=== PATIENT | female | born 1960 | race Caucasian/White ===

== ENCOUNTER 2020-02-03 14:44 | Emergency (ER) | payer OTHER ==
[2020-02-03] MEDS ORDERED: FLUORESCEIN SODIUM 1 MG/WRAP ONE (15:40)
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
[2020-02-03] MEDS ORDERED: GENTAMICIN 0.3% OPTH DROP 5ML ONE (16:05)
[2020-02-03 16:08] VITALS: TEMP 97.4; O2SAT 100
[2020-02-03 16:09] VITALS: BP 179/96
== END 2020-02-03 16:02 | disposition home or self-care (01) ==
LOC: ER 14:44
DX: S05.02XA Injury of conjunctiva and corneal abrasion without foreign body, left eye, initial encounter (principal); S05.01XA Injury of conjunctiva and corneal abrasion without foreign body, right eye, initial encounter; I11.9 Hypertensive heart disease without heart failure; I10 Essential (primary) hypertension; F17.210 Nicotine dependence, cigarettes, uncomplicated; Z88.4 Allergy status to anesthetic agent
CPT/HCPCS: 99283

== ENCOUNTER 2020-05-18 10:51 | Emergency (ER) | payer OTHER ==
--- NOTE | 2020-05-18 11:15 | ER ---
Nurse's Notes [facility] Name: Mery Larson Age: 59 yrs Sex: Female : 1960 Arrival Date: 05/18/2020 Time: 10:52 Bed 15 Private MD: Diagnosis: Periapical abscess without sinus Presentation: 05/18 10:57 Chief complaint: Patient states: Abscess on bottom R tooth x 1 week. Denies fever. ca1 Coronavirus screen: Client denies travel out of the [place] in the last 14 days. At this time, the client does not indicate any symptoms associated with coronavirus-19. Ebola Screen: Patient negative for fever greater than or equal to 101.5 degrees Fahrenheit, and additional compatible Ebola Virus Disease symptoms Patient denies exposure to infectious person. Patient denies travel to an Ebola-affected area in the 21 days before illness onset. No symptoms or risks identified at this time. Initial Sepsis Screen: Does the patient meet any 2 criteria? No. Patient's initial sepsis screen is negative. Does the patient have a suspected source of infection? No. Patient's initial sepsis screen is negative. Risk Assessment: Do you want to hurt yourself or someone else? Patient reports no desire to harm self or others. Onset of symptoms was May 18, 2020. 10:57 Method Of Arrival: Wheelchair ca1 10:57 Acuity: SHIV 4 ca1 Historical: - Allergies: 11:01 Lidocaine; ca1 11:01 novacain; ca1 11:01 steroids; ca1 - PMHx: 11:01 Diabetes - NIDDM; Hypertension; Myocardial infarction; ca1 - PSHx: 11:01 brain aneurysm-craniotomy; Hysterectomy; Appendectomy; ca1 - Immunization history:: Adult Immunizations up to date, Flu vaccine is not up to date. - Social history:: Smoking status: Patient reports the use of cigarette tobacco products, smokes one-half pack cigarettes per day. Screenin:25 Abuse screen: Denies threats or abuse. Nutritional screening: No deficits noted. tw2 Tuberculosis screening: No symptoms or risk factors identified. Fall Risk None identified. Assessment: 11:02 General: Appears in no apparent distress. slender, well groomed, Behavior is calm, tw2 cooperative, appropriate for age. Pain: Complains of pain in mouth. Neuro: Level of Consciousness is awake, alert, obeys commands, Oriented to person, place, time, situation. Cardiovascular: Respiratory: Airway is patent Respiratory effort is even, unlabored, Respiratory pattern is regular, symmetrical. GI: No signs and/or symptoms were reported involving the gastrointestinal system. : No signs and/or symptoms were reported regarding the genitourinary system. EENT: No signs and/or symptoms were reported regarding the EENT system. Derm: No signs and/or symptoms reported regarding the dermatologic system. Musculoskeletal: Range of motion: intact in all extremities. 11:31 Reassessment: Patient appears in no apparent distress at this time. No changes from tw2 previously documented assessment. Patient and/or family updated on plan of care and expected duration. Pain level reassessed. Patient is alert, oriented x 3, equal unlabored respirations, skin warm/dry/pink. Vital Signs: 10:57 BP 174 / 104; Pulse 67; Resp 17 S; Temp 97.8(TE); Pulse Ox 98% on R/A; Weight 56.7 kg ca1 (R); Height 5 ft. 2 in. (157.48 cm) (R); Pain 10/10; 11:17 BP 193 / 88; Pulse 68; Resp 17; Pulse Ox 99% on R/A; tw2 11:28 BP 170 / 93; Pulse 63; Resp 17; Pulse Ox 98% on R/A; tw2 10:57 Body Mass Index 22.86 (56.70 kg, 157.48 cm) ca1 ED Course: 10:52 Patient arrived in ED. ag5 10:59 Triage completed. ca1 11:00 Yissel Uribe FNP-C is [facility]. kb 11:00 Brandon Edward MD is Attending Physician. kb 11:01 Arm band placed on right wrist. ca1 11:01 Bed in low position. Call light in reach. Pulse ox on. NIBP on. tw2 11:09 Britney Sebastian, ANTHONY is Primary Nurse. tw2 11:30 No provider procedures requiring assistance completed. Patient did not have IV access tw2 during this emergency room visit. Administered Medications: 11:17 Drug: TORadol 30 mg Route: IM; Site: left deltoid; tw2 11:32 Follow up: Response: No adverse reaction; Pain is decreased tw2 11:17 Drug: Augmentin 875 mg Route: PO; tw2 11:32 Follow up: Response: No adverse reaction tw2 Outcome: 11:14 Discharge ordered by MD. cintron 11:30 Discharged to home ambulatory. tw 11:30 Condition: stable 11:30 Discharge instructions given to patient, Instructed on discharge instructions, follow up and referral plans. medication usage, Demonstrated understanding of instructions, follow-up care, medications, Prescriptions given X 2. 11:32 Patient left the ED. tw2 Signatures: Yissel Uribe, WHEAT BUYER-C WHEAT BUYER-Britney Feldman RN RN tw2 Vicky Tony RN RN ca1 Audie Moody ag5
--- NOTE | 2020-05-18 11:15 | EDPHYS ---
Physician Documentation [facility] Name: Mery Larson Age: 59 yrs Sex: Female : 1960 Arrival Date: 05/18/2020 Time: 10:52 Bed 15 Private MD: ED Physician Brandon Edward HPI: 05/18 11:11 This 59 yrs old Female presents to ER via Wheelchair with complaints of kb Abscess. 11:11 The patient has experienced similar episodes in the past. The patient has not recently kb seen a physician. Pt reports dental abscess for one month. STates she had amoxicillin at home from a previous dental abscess so she took it and it helped, but pain got worse 3 days ago. Pt called her dentist and has an appt on 05/25/20. 11:13 The patient presents with pain, redness, swelling. The problem is located in the lower kb right first molar (#30). Onset: The symptoms/episode began/occurred 1 month(s) ago. Duration: The symptoms are continuous. Modifying factors: The symptoms are alleviated by nothing, the symptoms are aggravated by chewing, talking. Associated signs and symptoms: Pertinent positives: pain, redness in area, swelling. Severity of symptoms: At their worst the symptoms were moderate, in the emergency department the symptoms are unchanged. Historical: - Allergies: 11:01 Lidocaine; ca1 11:01 novacain; ca1 11:01 steroids; ca1 - PMHx: 11:01 Diabetes - NIDDM; Hypertension; Myocardial infarction; ca1 - PSHx: 11:01 brain aneurysm-craniotomy; Hysterectomy; Appendectomy; ca1 - Immunization history:: Adult Immunizations up to date, Flu vaccine is not up to date. - Social history:: Smoking status: Patient reports the use of cigarette tobacco products, smokes one-half pack cigarettes per day. ROS: 11:10 Constitutional: Negative for fever, chills, and weight loss, Cardiovascular: Negative kb for chest pain, palpitations, and edema, Respiratory: Negative for shortness of breath, cough, wheezing, and pleuritic chest pain, Abdomen/GI: Negative for abdominal pain, nausea, vomiting, diarrhea, and constipation, MS/Extremity: Negative for injury and deformity, Skin: Negative for injury, rash, and discoloration, Neuro: Negative for headache, weakness, numbness, tingling, and seizure. 11:10 ENT: Positive for dental pain. Exam: 11:10 Constitutional: This is a well developed, well nourished patient who is awake, alert, kb and in no acute distress. Head/Face: Normocephalic, atraumatic. Skin: Warm, dry with normal turgor. Normal color with no rashes, no lesions, and no evidence of cellulitis. MS/ Extremity: Pulses equal, no cyanosis. Neurovascular intact. Full, normal range of motion. Neuro: Awake and alert, GCS 15, oriented to person, place, time, and situation. Cranial nerves II-XII grossly intact. Motor strength 5/5 in all extremities. Sensory grossly intact. Cerebellar exam normal. Normal gait. 11:10 ENT: Dental exam: abscess, that is mild, gum swelling, that is moderate, specifically in the lower right first molar (#30), missing teeth, diffusely, pain, that is moderate. 11:10 Respiratory: the patient does not display signs of respiratory distress, Respirations: normal. Vital Signs: 10:57 BP 174 / 104; Pulse 67; Resp 17 S; Temp 97.8(TE); Pulse Ox 98% on R/A; Weight 56.7 kg ca1 (R); Height 5 ft. 2 in. (157.48 cm) (R); Pain 10/10; 11:17 BP 193 / 88; Pulse 68; Resp 17; Pulse Ox 99% on R/A; tw2 11:28 BP 170 / 93; Pulse 63; Resp 17; Pulse Ox 98% on R/A; tw2 10:57 Body Mass Index 22.86 (56.70 kg, 157.48 cm) ca1 MDM: 11:02 Patient medically screened. kb 11:11 Data reviewed: vital signs, nurses notes. Data interpreted: Pulse oximetry: on room air kb is 98 %. Interpretation: normal. Counseling: I had a detailed discussion with the patient and/or guardian regarding: the historical points, exam findings, and any diagnostic results supporting the discharge/admit diagnosis, the need for outpatient follow up, a dentist, to return to the emergency department if symptoms worsen or persist or if there are any questions or concerns that arise at home. Administered Medications: 11:17 Drug: TORadol 30 mg Route: IM; Site: left deltoid; tw2 11:32 Follow up: Response: No adverse reaction; Pain is decreased tw2 11:17 Drug: Augmentin 875 mg Route: PO; tw2 11:32 Follow up: Response: No adverse reaction tw2 Disposition: 05/18/20 11:14 Discharged to Home. Impression: Periapical abscess without sinus. - Condition is Stable. - Discharge Instructions: Dental Pain, [id number], Dental Abscess, [id number]-[id number]. - Prescriptions for Augmentin 875- 125 mg Oral Tablet - take 1 tablet by ORAL route every 12 hours for 10 days; 20 tablet. Diclofenac Sodium 75 mg Oral Tablet, Delayed Release (E.C.) - take 1 tablet by ORAL route 2 times per day As needed; 30 tablet. - Medication Reconciliation Form, Thank You Letter, Antibiotic Education, Prescription Opioid Use form. - Follow up: Emergency Department; When: As needed; Reason: Worsening of condition. Follow up: Private Physician; When: 2 - 3 days; Reason: Recheck today's complaints, Continuance of care, Re-evaluation by your physician. Addendum: 05/23/2020 20:59 Co-signature as Attending Physician, Brandon Edward MD Did not see or evaluate patient. p s1 Signature for administrative purposes. . Signatures: Yissel Uribe, ARCHIVES SPECIALIST-C ARCHIVES SPECIALIST-Ckb Britney Sebastian RN RN tw2 Brandon Edward MD MD ps1 Vicky Tony RN RN ca1 Corrections: (The following items were deleted from the chart) 05/18 11:32 11:14 05/18/2020 11:14 Discharged to Home. Impression: Periapical abscess without tw2 sinus. Condition is Stable. Forms are Medication Reconciliation Form, Thank You Letter, Antibiotic Education, Prescription Opioid Use. Follow up: Emergency Department; When: As needed; Reason: Worsening of condition. Follow up: Private Physician; When: 2 - 3 days; Reason: Recheck today's complaints, Continuance of care, Re-evaluation by your physician. kb
[2020-05-18] MEDS ORDERED: AMOX/K CLAV 875 MG TAB ONE (11:25)
[2020-05-18] MEDS ORDERED: KETOROLAC 30 MG/ML INJ ONE (11:26)
[2020-05-18 13:00] VITALS: TEMP 97.8
[2020-05-18 13:03] VITALS: BP 170/93; O2SAT 98
== END 2020-05-18 11:32 | disposition home or self-care (01) ==
LOC: ER 10:51
DX: K04.7 Periapical abscess without sinus (principal); I10 Essential (primary) hypertension; F17.210 Nicotine dependence, cigarettes, uncomplicated; Z88.5 Allergy status to narcotic agent; Z88.8 Allergy status to other drugs, medicaments and biological substances
CPT/HCPCS: 96372; 99283

== ENCOUNTER 2020-07-03 17:43 | Emergency (ER) | payer OTHER ==
--- OUTSIDE RECORDS SUMMARY | 2020-07-03 17:45 | XMS REPORT | Continuity of Care Document ---
:1960 Author Organization [facility] t Address [address] [place] [address] Care Team Providers Name Role Phone Neurology Attending Clinician Unavailable Doctor Unassigned, Name Attending Clinician Unavailable Only, Test Attending Clinician Unavailable Problems This patient has no known problems. Allergies, Adverse Reactions, Alerts This patient has no known allergies or adverse reactions. Medications This patient has no known medications. Procedures This patient has no known procedures. Encounters Start End Encounter Admission Attending Care Care Encounter Source Date/Time Date/Time Type Type Clinicians Facility Department ID 2020-06-09 2020-06-09 Letter Neurology [facility] [id number] 00:00:00 00:00:00 (Out) Billy [id number] [place] [id number] [place] [id number] [address] 2020-06-07 2020-06-07 Orders Doctor DUFFY [id number] 00:00:00 00:00:00 Only UnassignedETIENNE [id number] [place] [facility] [id number] 2020-01-28 2020-01-28 Orders Doctor DUFFY [id number] 00:00:00 00:00:00 Only UnassignedETIENNE [id number] [place] [id number] 2019-12-23 2019-12-23 Laboratory Only, Pcp [facility] [id number] 08:06:30 08:21:30 Only Test PRIMARY [id number] CARE [id number] [place] [id number] Results This patient has no known results.
--- OUTSIDE RECORDS SUMMARY | 2020-07-03 17:45 | XMS REPORT | Summary of Care ---
:1960 Author Organization [facility] Address [address] [place] [id number] Care Team Providers Name Role Phone Unavailable Primary Care Provider Unavailable Encounter Details Date Type Department Care Team Description 06/09/2020 Letter (Out) [facility] Neurology Neurology-[address] [place] [address] Allergies Active Allergy Reactions Severity Noted Date Comments Codeine Swelling 05/12/2016 Propoxyphene Hcl Nausea and/or Vomiting 09/29/2005 Latex Itching, Swelling 01/09/2015 Lidocaine Base Anaphylaxis 02/24/2015 Naproxen Rash 09/29/2005 Amlodipine Besylate Swelling 06/02/2015 Ketorolac Tromethamine Rash 09/29/2005 documented as of this encounter (statuses as of 06/09/2020) Medications Medication Sig Dispensed Refills Start Date End Date Status lisinopril 10 mg Take 1 tablet by 30 tablet 1 03/13/2017 Active tabletIndications: mouth at Essential hypertension bedtime. citalopram (CELEXA) 20 Take 1/2 tablet 30 tablet 1 06/27/2017 Active mg tabletIndications: daily for four Mood disorder, Panic days then disorder without increase to one agoraphobia tablet daily. metoprolol succinate XL Take 1 tablet by 90 tablet 1 8 Active 50 mg 24 hr mouth daily. tabletIndications: Essential hypertension traMADOL 50 mg tablet Take 1 tablet by 20 tablet 0 07/05/2017 Active mouth every 6 (six) hours as needed for Pain (scale 1-3). proCHLORperazine 10 mg Take 1 tablet by 15 tablet 0 07/05/2017 Active tablet mouth every 6 (six) hours as needed for Nausea and Vomiting (N/V). ALPRAZolam (XANAX) 2 mg Take 1 tablet by 60 tablet 0 8 Active tabletIndications: Panic mouth 2 (two) disorder without times daily. agoraphobia documented as of this encounter (statuses as of 06/09/2020) Active Problems Problem Noted Date Allergic rhinitis, unspecified allergic rhinitis type 01/29/2016 Diabetes 06/25/2008 Rash and other nonspecific skin eruption 09/08/2005 Hypertension Generalized anxiety disorder documented as of this encounter (statuses as of 06/09/2020) Immunizations Name Administration Dates Next Due Influenza Virus Vaccine Quad IM 3+ YRS 07/13/2015 documented as of this encounter Social History Tobacco Use Types Packs/Day Years Used Date Current Every Day Smoker Cigarettes 0.5 Smokeless Tobacco: Never Used Comments: declined health coaching Alcohol Use Drinks/Week oz/Week Comments No 0 Standard drinks or equivalent 0.0 quit in 12/23/2016 Sex Assigned at Date Recorded Not on file documented as of this encounter Last Filed Vital Signs Not on filedocumented in this encounter Plan of Treatment Health Maintenance Due Date Last Done Comments EYE EXAM 1972 Depression Screening 1974 FOOT EXAM 1980 DTaP,Tdap,and Td Vaccines (1 1981 - Tdap) PAP SMEAR 10/07/1983 Breast Cancer Screening 2002 (MAMMOGRAM) COLON CANCER SCREENING 2012 ANNUAL FIT/FOBT COLON CANCER SCREENING FIT 2012 DNA EVERY 3 YEARS COLON CANCER SCREENING 2012 SIGMOIDOSCOPY EVERY 5 YEARS COLONOSCOPY 2012 Colorectal Cancer Screening 2012 Zoster Recombinant Vaccine 2012 (SHINGRIX) (1 of 2) HgA1C 02/01/2016 08/03/2015, 02/24/2015 URINE MICROALBUMIN 02/25/2016 02/24/2015 LDL-C 08/03/2016 08/03/2015, 02/24/2015 LUNG CANCER SCREEN: 2017 Recommended for age 55-80 with 30 + pack year history CREATININE (SERUM) 07/05/2018 07/05/2017, 05/11/2016, 01/19/2016, Additional history exists INFLUENZA VACCINE (#1) 2020 07/13/2015 HEPATITIS C (HCV) SCREEN Completed 09/16/2004 PNEUMOCOCCAL 0-64 YEARS Aged Out No longe r eligible COMBINED SERIES based on patient 's age to complete this topic documented as of this encounter Results Not on filedocumented in this encounter Insurance Payer Benefit Plan Subscriber ID Effective Phone Address Typ e / Group Dates MEDICARE MEDICARE PART [id number] 2006-Prese [phone] [address] [place] Medicare A & B [place] [id number] [place] [id number] [facility] MEDICAID OF [id number] 2020-Pres [phone] [address] dicaid [place] ent [address] [place] [address] ALLEGED [facility] [id number] 2017-Pre [phone] PAT FIN RT Ag ency SEXUAL sent [phone] [place] [address] documented as of this encounter Advance Directives Name Relationship Healthcare Agent Relationship Co mmunication San[employer] Maldonado Uncle Health Care Agent Evelia Bright Mother First [facility] Health Care Agent (Mobile)
--- OUTSIDE RECORDS SUMMARY | 2020-07-03 17:45 | XMS REPORT | Summary of Care ---
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 [place] Medicare A & B nt 82 [id number] [place] [id number] [facility] MEDICAID OF [id number] 2020-Pres [phone] [address] dicaid [place] ent [id number] [place] [address] ALLEGED RAJ [id number] 2017-Pre [phone] PAT FIN RT Ag ency SEXUAL sent [phone] [place] [address] documented as of this encounter Advance Directives Name Relationship Healthcare Agent Relationship Co mmunication Sanford Maldonado Uncle Health Care Agent Evelia Bright Mother First [facility] Health Care Agent (Mobile)
[2020-07-03] MEDS ORDERED: MEPERIDINE HCL 50 MG/ML ONE (18:16)
[2020-07-03] MEDS ORDERED: NA CHLORIDE 0.9% 1,000 ML ONE (18:17)
[2020-07-03] MEDS ORDERED: dexAMETHasone 10 MG/ML VIAL ONE (18:17)
[2020-07-03 18:47] LABS: Absolute Lymphocytes (CBC) 1.7 K/uL (0.7-4.9); Hematocrit 36.4 % (36.0-45.0); Lymphocytes % 32.9 % (15.3-44.8); MPV 6.8 fL (7.6-11.3); RBC Red Blood Cell Count 3.85 M/uL (3.86-4.86)
[2020-07-03 18:48] LABS: Protime INR 0.93
[2020-07-03 18:54] LABS: BUN Blood Urea Nitrogen 11 mg/dL (7-18); Bicarbonate 27 mmol/L (21-32); Glucose Level 92 mg/dL (74-106); Potassium 4.1 mmol/L (3.5-5.1); Sodium Level 127 mmol/L (136-145); Troponin (Emerg Dept Use Only) < 0.02 ng/mL (0.0-0.045)
--- NOTE | 2020-07-03 19:10 | RAD REPORT ---
EXAM DESCRIPTION: CT - Head Brain Wo Cont - 07/03/2020 6:52 pm CLINICAL HISTORY: HEADACHE COMPARISON: No comparisons TECHNIQUE: Axial 5 mm thick images of the head were obtained without IV contrast. All CT scans are performed using dose optimization technique as appropriate and may include automated exposure control or mA/KV adjustment according to patient size. FINDINGS: No intracranial hemorrhage, mass, edema or shift of mid-line structures. No acute infarcti on changes seen. No cortical edema or sulcal effacement. Aneurysm clip is present in the left sylvian fissure with associated spray artifact. Overlying left temporal craniotomy changes are seen. Ventric les are normal. Mastoid air cells and visualized portions of the paranasal sinuses are clear. No acute bony findings. IMPRESSION: Negative non-contrast CT head examination for acute or significant finding.
--- NOTE | 2020-07-03 20:02 | RAD REPORT ---
EXAM DESCRIPTION: CT - Neck Angio - 07/03/2020 7:40 pm CLINICAL HISTORY: HEADACHE, dizziness, hypertension TECHNIQUE: During dynamic enhancement using nonionic IV contrast, axial 2 mm thick images of the nec k were obtained. Sagittal and axial reconstruction images were generated using MIP technique and revi ewed. All CT scans are performed using dose optimization technique as appropriate and may include automated exposure control or mA/KV adjustment according to patient size. COMPARISON: CT head same date FINDINGS: No aneurysm or vascular malformation identified. No carotid or vertebral dissection. No aortic arch or great vessel origin abnormality seen. Vertebral artery origins unremarkable as well . No stenosis, vasculitis or other significant carotid artery finding. No focal abnormality of either vertebral artery. Basilar artery is normal. IMPRESSION: Negative CT angio neck examination.
--- NOTE | 2020-07-03 20:05 | RAD REPORT ---
EXAM DESCRIPTION: CT - Head angio - 07/03/2020 7:40 pm CLINICAL HISTORY: hx of cerebral aneurysm;Headache TECHNIQUE: During dynamic enhancement using nonionic IV contrast, axial 1 millimeter thick images of the head were obtained. Sagittal and axial reconstruction images were generated using MIP technique and reviewed. All CT scans are performed using dose optimization technique as appropriate and may include automated exposure control or mA/KV adjustment according to patient size. COMPARISON: CT head same date FINDINGS: No aneurysm or vascular malformation identified. Major venous sinuses are patent. No stenosis, named branch occlusion, vasculitis or other significant vascular finding identifiable. Large left posterior communicating artery variant provides all or most of the left posterior cerebral artery distribution. Aneurysm clip is present in the left sylvian fissure IMPRESSION: Negative CT angio head examination for acute or significant finding.
[2020-07-03] MEDS ORDERED: METOCLOPRAMIDE 10 MG/2mL INJ ONE ×2 (20:46→21:05)
[2020-07-03] MEDS ORDERED: DIPHENHYDRAMINE 50 MG/ML VIAL ONE ×2 (20:47→21:05)
[2020-07-03] MEDS ORDERED: NA CHLORIDE 0.9% 50 ML ONE (21:05)
[2020-07-03 21:25] LABS: Urine Blood TRACE (NEG); Urine Glucose NEGATIVE (NEG); Urine Protein NEGATIVE (NEG)
--- NOTE | 2020-07-03 21:56 | ER ---
Nurse's Notes [facility] Name: Mery Larson Age: 59 yrs Sex: Female : 1960 Arrival Date: 07/03/2020 Time: 17:44 Bed 2 Private MD: Diagnosis: Headache;Hypertension Presentation: 07/03 17:52 Chief complaint: EMS states: FRANCISCO AND DIZZINESS x1 WK WITH HTN. Coronavirus screen: At bp this time, the client does not indicate any symptoms associated with coronavirus-19. Ebola Screen: No symptoms or risks identified at this time. Initial Sepsis Screen: Does the patient meet any 2 criteria? No. Patient's initial sepsis screen is negative. Does the patient have a suspected source of infection? No. Patient's initial sepsis screen is negative. Risk Assessment: Do you want to hurt yourself or someone else? Patient reports no desire to harm self or others. Onset of symptoms is unknown. 17:52 Method Of Arrival: EMS: [facility] bp 17:52 Acuity: SHIV 3 bp Triage Assessment: 17:57 General: Appears distressed, uncomfortable, Behavior is cooperative, appropriate for bp age, anxious. Pain: Complains of pain in forehead and top of head. EENT: No deficits noted. Neuro: Level of Consciousness is awake, alert, obeys commands, Oriented to person, place, time, situation, Appropriate for age. Cardiovascular: No deficits noted. Respiratory: No deficits noted. GI: No signs and/or symptoms were reported involving the gastrointestinal system. : No signs and/or symptoms were reported regarding the genitourinary system. Derm: No deficits noted. Musculoskeletal: No deficits noted. Historical: - Allergies: 17:57 Lidocaine; bp 17:57 novacain; bp 17:57 steroids; bp - PMHx: 17:57 Diabetes - NIDDM; Hypertension; Myocardial infarction; Aneurysm; bp - PSHx: 17:57 CRANIOTOMY; bp - Immunization history:: Adult Immunizations up to date. - Social history:: Smoking status: Patient denies any tobacco usage or history of. - Family history:: not pertinent. - Hospitalizations: : No recent hospitalization is reported. Screenin:58 Abuse screen: Denies threats or abuse. Denies injuries from another. Nutritional bp screening: No deficits noted. Tuberculosis screening: No symptoms or risk factors identified. Fall Risk None identified. Assessment: 17:58 General: SEE TRIAGE NOTE. bp 19:02 Reassessment: Patient and/or family updated on plan of care and expected duration. Pain bp level reassessed. Patient is alert, oriented x 3, equal unlabored respirations, skin warm/dry/pink. PT RETURNED FROM CT Patient states symptoms have improved. 19:51 Reassessment: Patient and/or family updated on plan of care and expected duration. Pain ea level reassessed. Patient is alert, oriented x 3, equal unlabored respirations, skin warm/dry/pink. Returned from CT. 20:56 Reassessment: Patient and/or family updated on plan of care and expected duration. Pain ea level reassessed. Patient is alert, oriented x 3, equal unlabored respirations, skin warm/dry/pink. 22:10 Reassessment: Patient and/or family updated on plan of care and expected duration. Pain ea level reassessed. Patient is alert, oriented x 3, equal unlabored respirations, skin warm/dry/pink. Discharge instruction given to patient, verbalized the understanding of instruction. Patient states feeling better. Vital Signs: 17:52 BP 194 / 103; Pulse 60; Resp 17; Temp 98; Pulse Ox 99% ; bp 18:30 BP 191 / 90; Pulse 53; Resp 16; Pulse Ox 99% ; bp 19:00 BP 180 / 90; Pulse 53; Resp 16; Pulse Ox 99% ; bp 20:56 BP 183 / 90; Pulse 55; Resp 18; Pulse Ox 98% ; ea 21:55 BP 180 / 89; Pulse 55; Resp 18; Pulse Ox 99% ; ea [place] Coma Score: 21:52 Eye Response: spontaneous(4). Verbal Response: oriented(5). Motor Response: obeys mh7 commands(6). Total: 15. ED Course: 17:44 Patient arrived in ED. rn 17:44 Van Franco MD is Attending Physician. rn 17:44 Moe Coleman, ANTHONY is Primary Nurse. bp 17:53 Triage completed. bp 17:57 Arm band placed on. bp 17:58 Patient has correct armband on for positive identification. Bed in low position. Call bp light in reach. Side rails up X2. 18:20 Inserted saline lock: 20 gauge in right forearm, using aseptic technique. Blood bp collected. 18:52 CT Head Brain wo Cont In Process Unspecified. EDMS 19:02 Attending Physician role handed off by Van Franco MD [facility] 19:02 Jayden Aleman MD is Attending Physician. mh7 19:40 CT Head Angio In Process Unspecified. EDMS 19:40 CT Neck Angio In Process Unspecified. EDMS 21:54 Ashtyn Jimenez MD is Referral Physician. 7 21:55 Eduardo Lebron MD is Referral Physician. mh7 21:55 Sadiq Keys MD is Referral Physician. 7 22:10 No provider procedures requiring assistance completed. IV discontinued, intact, ea bleeding controlled, No redness/swelling at site. Pressure dressing applied. Administered Medications: 18:20 Drug: Decadron - Dexamethasone 10 mg Route: IVP; Site: right forearm; bp 18:20 Drug: Demerol 50 mg Route: IVP; Site: right forearm; bp 18:20 Drug: NS 0.9% 1000 ml Route: IV; Rate: 1000 ml; Site: right forearm; bp 21:30 Follow up: Response: No adverse reaction; IV Status: Completed infusion; IV Intake: ea 1000ml 20:55 Drug: Reglan 10 mg Route: IVP; Site: right forearm; ea 21:50 Follow up: Response: No adverse reaction ea 20:55 Drug: Benadryl 50 mg Route: IVP; Site: right forearm; ea 21:50 Follow up: Response: No adverse reaction ea Intake: 21:30 IV: 1000ml; Total: 1000ml. ea Outcome: 21:56 Discharge ordered by . [facility] 22:10 Discharged to home via wheelchair, with family. ea 22:10 Condition: stable 22:10 Discharge instructions given to patient, Instructed on discharge instructions, follow up and referral plans. Demonstrated understanding of instructions, follow-up care. 22:12 Patient left the ED. ea Signatures: Dispatcher [employer] EDNJ Van Franco MD MD rn Antunez, Elena, RN RN ea Peltier, Brian, RN RN bp Holmes, Maurice, MD MD [facility]
--- NOTE | 2020-07-03 21:57 | EDPHYS ---
Physician Documentation [facility] Name: Mery Larson Age: 59 yrs Sex: Female : 1960 Arrival Date: 07/03/2020 Time: 17:44 Bed 2 Private MD: ED Physician Jayden Aleman HPI: 07/03 17:53 This 59 yrs old Female presents to ER via Unassigned with complaints of rn headache, high blood pressure. 17:53 The patient complains of pain to the top of head and forehead. The patient describes rn the headache as aching. Onset: The symptoms/episode began/occurred 1 week(s) ago. Associated signs and symptoms: Pertinent positives: This patient does not have any pertinent positive signs or symptoms associated with a headache. Pertinent negatives: altered mental status, fever, rash, vision changes, vision loss, vomiting, weakness, vertigo. Severity of symptoms: At its worst the pain was moderate, "similar to past headaches", in the emergency department the pain is unchanged. Headache History: The patient has had previous headaches and this one is similar to previous episodes. The symptoms are alleviated by aspirin and caffeine. the symptoms are aggravated by nothing. The patient has experienced similar episodes in the past. The patient has not recently seen a physician. Reports headache for 1 week, similar to previous headaches, states chronically difficult to control BP, takes extra clonidine for BP > 160 systolic in addition to her tid clonidine. Has hx of cerebral aneurysm s/p clipping, does not feel like that did. No vomiting. No focal neuro deficit. No chest pain.. Historical: - Allergies: 17:57 Lidocaine; bp 17:57 novacain; bp 17:57 steroids; bp - PMHx: 17:57 Diabetes - NIDDM; Hypertension; Myocardial infarction; Aneurysm; bp - PSHx: 17:57 CRANIOTOMY; bp - Immunization history:: Adult Immunizations up to date. - Social history:: Smoking status: Patient denies any tobacco usage or history of. - Family history:: not pertinent. - Hospitalizations: : No recent hospitalization is reported. ROS: 17:53 Constitutional: Negative for fever, chills, and weight loss, Eyes: Negative for injury, rn pain, redness, and discharge, Neck: Negative for injury Cardiovascular: Negative for chest pain, palpitations, and edema, Respiratory: Negative for shortness of breath, cough, wheezing, and pleuritic chest pain, Abdomen/GI: Negative for abdominal pain, nausea, vomiting, diarrhea, and constipation, MS/Extremity: Negative for injury and deformity, Skin: Negative for injury, rash, and discoloration, Neuro: Negative for weakness, numbness, tingling, and seizure. Exam: 17:53 Constitutional: This is a well developed, well nourished patient who is awake, alert, rn and in no acute distress. Head/Face: Normocephalic, atraumatic. Eyes: Pupils equal round and reactive to light, extra-ocular motions intact. Periorbital areas with no swelling, redness, or edema. Neck: Able to flex neck, touch chin to chest, no meningismus Cardiovascular: Regular rate and rhythm. No pulse deficits. Respiratory: No increased work of breathing, no retractions or nasal flaring. Abdomen/GI: soft, non-tender Skin: Warm, dry MS/ Extremity: Pulses equal, no cyanosis. Left knee wrapped in chaitanya wrap from injury to knee 1 year prior. Neuro: Awake and alert, GCS 15, oriented to person, place, time, and situation. Cranial nerves II-XII grossly intact. Motor strength 5/5 in all extremities. Sensory grossly intact. Cerebellar exam normal. Vital Signs: 17:52 BP 194 / 103; Pulse 60; Resp 17; Temp 98; Pulse Ox 99% ; bp 18:30 BP 191 / 90; Pulse 53; Resp 16; Pulse Ox 99% ; bp 19:00 BP 180 / 90; Pulse 53; Resp 16; Pulse Ox 99% ; bp 20:56 BP 183 / 90; Pulse 55; Resp 18; Pulse Ox 98% ; ea 21:55 BP 180 / 89; Pulse 55; Resp 18; Pulse Ox 99% ; ea [place] Coma Score: 21:52 Eye Response: spontaneous(4). Verbal Response: oriented(5). Motor Response: obeys mh7 commands(6). Total: 15. MDM: 17:44 Patient medically screened. rn 21:52 Differential diagnosis: cluster headache, hypertensive headache, intracerebral mh7 hemorrhage, migraine, subarachnoid bleed, tension headache. Data reviewed: vital signs, nurses notes, EMS record, lab test result(s), CBC, electrolytes, urinalysis, radiologic studies, CT scan. Data interpreted: Pulse oximetry: on room air is 98 %. Interpretation: normal. Counseling: I had a detailed discussion with the patient and/or guardian regarding: the historical points, exam findings, and any diagnostic results supporting the discharge/admit diagnosis, the presence of at least one elevated blood pressure reading (>120/80) during this emergency department visit, lab results, radiology results, the need for outpatient follow up, an staff nuclear weapons officer, a neurologist, to return to the emergency department if symptoms worsen or persist or if there are any questions or concerns that arise at home. Response to treatment: the patient's symptoms have resolved after treatment, the patient's blood pressure is in an acceptable range, mental status has returned to baseline, the patient no longer shows bradycardia, the patient is not short of breath, the patient is not tachycardic, the patient's pain is gone, the patient's temperature has normalized. 07/03 17:52 Order name: CBC with Diff; Complete Time: 19:06 rn 07/03 17:52 Order name: Basic Metabolic Panel; Complete Time: 18:57 rn 07/03 17:52 Order name: Protime (+inr); Complete Time: 19:06 rn 07/03 17:52 Order name: Ptt, Activated; Complete Time: 19:06 rn 07/03 17:52 Order name: Troponin (emerg Dept Use Only); Complete Time: 18:57 rn 07/03 21:21 Order name: Urine Dipstick--Ancillary (enter results) sp 07/03 17:52 Order name: CT Head Brain wo Cont; Complete Time: 19:17 rn 07/03 18:37 Order name: CT Head Angio; Complete Time: 20:29 rn 07/03 18:37 Order name: CT Neck Angio; Complete Time: 20:29 rn 07/03 21:21 Order name: Urine Dipstick-Ancillary; Complete Time: 21:56 EDMS 07/03 17:52 Order name: IV Start; Complete Time: 18:23 rn 07/03 17:52 Order name: EKG; Complete Time: 17:52 rn 07/03 17:52 Order name: EKG - Nurse/Tech; Complete Time: 18:23 rn Administered Medications: 18:20 Drug: Decadron - Dexamethasone 10 mg Route: IVP; Site: right forearm; bp 18:20 Drug: Demerol 50 mg Route: IVP; Site: right forearm; bp 18:20 Drug: NS 0.9% 1000 ml Route: IV; Rate: 1000 ml; Site: right forearm; bp 21:30 Follow up: Response: No adverse reaction; IV Status: Completed infusion; IV Intake: ea 1000ml 20:55 Drug: Reglan 10 mg Route: IVP; Site: right forearm; ea 21:50 Follow up: Response: No adverse reaction ea 20:55 Drug: Benadryl 50 mg Route: IVP; Site: right forearm; ea 21:50 Follow up: Response: No adverse reaction ea Disposition: 07/03/20 21:56 Discharged to Home. Impression: Headache, Hypertension. - Condition is Stable. - Discharge Instructions: General Headache Without Cause, Hypertension, [id number]. - Medication Reconciliation Form, Thank You Letter, Antibiotic Education, Prescription Opioid Use form. - Follow up: Ashtyn Jimenez MD; When: 1 - 2 days; Reason: Worsening of condition, Recheck today's complaints. Follow up: Eduardo Lebron MD; When: 1 - 2 days; Reason: Worsening of condition, Recheck today's complaints. Follow up: Sadiq Keys MD; When: 1 - 2 days; Reason: Worsening of condition, Recheck today's complaints. - Problem is an acute exacerbation. - Symptoms have improved. Signatures: Dispatcher [employer] EDMS Van Franco MD MD rn Antunez, Elena, RN RN ea Peltier, Brian, RN RN bp Holmes, Maurice, MD MD mh7 Corrections: (The following items were deleted from the chart) 22:12 21:56 07/03/2020 21:56 Discharged to Home. Impression: Headache; Hypertension. ea Condition is Stable. Forms are Medication Reconciliation Form, Thank You Letter, Antibiotic Education, Prescription Opioid Use. Follow up: Ashtyn Jimenez; When: 1 - 2 days; Reason: Worsening of condition, Recheck today's complaints. Follow up: Eduardo Lebron; When: 1 - 2 days; Reason: Worsening of condition, Recheck today's complaints. Follow up: Sadiq Keys; When: 1 - 2 days; Reason: Worsening of condition, Recheck today's complaints. Problem is an acute exacerbation. Symptoms have improved. mh7
[2020-07-03 22:24] VITALS: TEMP 98
[2020-07-03 22:27] VITALS: BP 183/90; O2SAT 98
--- NOTE | 2020-07-04 07:25 | EKG ---
Test Date: 2020-07-03 Test Time: 18:16:48 Head Resident: BP MEASUREMENT RESULTS: Intervals: Rate: 55 MO: 214 QRSD: 80 QT: 438 QTc: 419 [place]: P: 52 MO: 214 QRS: 38 T: 2 INTERPRETIVE STATEMENTS: Sinus bradycardia with 1st degree AV block Nonspecific T wave abnormality Abnormal ECG No previous ECG available for comparison Electronically Signed On 07-04-20 07:24:00 CULLET WASHER by Sadiq Keys
== END 2020-07-03 22:12 | disposition home or self-care (01) ==
LOC: ER 17:43
DX: R51.9 Headache, unspecified (principal); I10 Essential (primary) hypertension; E11.9 Type 2 diabetes mellitus without complications; I25.2 Old myocardial infarction
CPT/HCPCS: 96361; 93005; 85025; 80048; 36415; 85610; 85730; 81003; 84484; 70450; 70496; 70498; 96375; 96374; 99284; Q9967; J2765; J1200; J1100; J2175; J7030

== ENCOUNTER 2021-02-10 09:29 | Emergency (ER) | payer OTHER ==
--- OUTSIDE RECORDS SUMMARY | 2021-02-10 09:32 | XMS REPORT | Clinical Summary ---
:1960 Author Organization [facility] MD [facility] Address [facility] [place] [address] Care Team Providers Name Role Phone Fina Cordova Unavailable Libra Neely MD Primary Care Provider Allergies Not on File Medications Not on file Active Problems Not on file Social History Tobacco Use Types Packs/Day Years Used Date Never Assessed Sex Assigned at Date Recorded Not on file Job Start Date Occupation Industry Not on file Not on file Not on file Last Filed Vital Signs Not on file Plan of Treatment Date Type Specialty Care Team Description 03/03/2021 NPR Patient Access Services 03/03/2021 Office Visit Internal Medicine Shea Neely MD [address] [place] [address] [phone] Results Not on fileafter 02/11/2020 Insurance Payer Benefit Plan / Subscriber ID Effective Dates Phone Addre ss Type Group MEDICARE MEDICARE PART A [id number] 2006-Rainer [phone] [place] Medicare AND B t 2
--- OUTSIDE RECORDS SUMMARY | 2021-02-10 09:32 | XMS REPORT | Continuity of Care Document ---
:1960 Author Organization [facility] t Address [address] [place] [address] Care Team Providers Name Role Phone [phone] Primary Care Physician Unavailable SYSTEM, NOT IN Attending Clinician Unavailable Carina CRUZ Attending Clinician Unavailable Amita Alvarez Attending Clinician Chantal THOMAS Attending Clinician Declan THOMAS Attending Clinician Pancho Sharp MD Attending Clinician Gt Story Attending Clinician Gt Story Admitting Clinician Problems This patient has no known problems. Allergies, Adverse Reactions, Alerts This patient has no known allergies or adverse reactions. Social History Social Habit Start Date Stop Date Quantity Comments Source Sex Assigned At [birth year] [facility] 00:00:00 00:00:00 Medications This patient has no known medications. Procedures This patient has no known procedures. Encounters Start End Encounter Admission Attending Care Care Encounter Source Date/Time Date/Time Type Type Clinicians Facility Department ID 2021-02-08 Outpatient SYSTEM, [facility] [id number] 08:25:48 PROVIDER Mik khanna 2021-02-07 2021-02-07 Transition Kong Lim [id number] 00:00:00 00:00:00 of Care Summer Hollis [id number] Emmy [id number] 2021-01-27 2021-02-04 [facility] Richard Cai [id number] 15:32:00 18:20:00 Encounter Misael Cornejo [id number] [facility] [id number] Lluvia Sharp [phone] Jourdan Fernandez 089 Results This patient has no known results.
--- NOTE | 2021-02-10 10:59 | RAD REPORT ---
EXAM DESCRIPTION: Henry Payne And Aruna (2 Views)02/10/2021 10:25 am CLINICAL HISTORY: Chest pain COMPARISON: None FINDINGS: Moderate left and small to moderate right pleural effusions with basilar atelectasis Upper lobes are clear. It is difficult to determine heart size given the adjacent pleural effusions a nd atelectasis.
[2021-02-10 14:01] LABS: Basophils % 0.6 % (0-1.3); Hematocrit 37.4 % (36.0-45.0); MPV 6.1 fL (7.6-11.3); RBC Red Blood Cell Count 4.04 M/uL (3.86-4.86)
[2021-02-10 14:07] LABS: BUN Blood Urea Nitrogen 7 mg/dL (7-18); Bicarbonate 33 mmol/L (21-32); Glucose Level 89 mg/dL (74-106); NT PRO-BNP 1195 pg/mL (<125); Potassium 3.6 mmol/L (3.5-5.1); Protime INR 1.07; Sodium Level 133 mmol/L (136-145); Troponin (Emerg Dept Use Only) < 0.02 ng/mL (0.0-0.045)
[2021-02-10] MEDS ORDERED: MORPHINE 2 MG/ML SYR ONE (14:29)
[2021-02-10] MEDS ORDERED: ONDANSETRON 4 MG/2 ML VIAL ONE (14:30)
[2021-02-10] MEDS ORDERED: FUROSEMIDE 100 MG/10 ML VIAL IV ONE (15:10)
--- NOTE | 2021-02-10 15:23 | EDPHYS ---
Physician Documentation [facility] Name: Mery Larson Age: 60 yrs Sex: Female : 1960 Arrival Date: 02/10/2021 Time: 09:33 Bed 23 Private MD: ED Physician Van Franco HPI: 02/10 09:59 This 60 yrs old Female presents to ER via Unassigned with complaints of rn Shortness Of Breath, Diff Breathing. 09:59 The patient has shortness of breath at rest. Onset: The symptoms/episode began/occurred rn at an unknown time. Duration: The symptoms are intermittent. The patient's shortness of breath is aggravated by coughing, light activity, supine position, is alleviated by nothing. Associated signs and symptoms: Pertinent positives: chest pain, non-productive cough, Pertinent negatives: fever, hemoptysis. Severity of symptoms: At their worst the symptoms were moderate in the emergency department the symptoms are unchanged. The patient has experienced similar episodes in the past. The patient has been recently seen by a physician:. Patient reports recently admitted and discharged from [facility], diagnosed with adenocarcinoma, assuming lung, got set up with [facility] but has not been seen there yet. Reports just discharged last week. States still having pain when laying supine and still with shortness of breath despite 4 L oxygen at home. No hemoptysis. No fever. States family member a nurse and they urged him to come back to the ER today for reevaluation.. Historical: - Allergies: 14:36 Lidocaine; vg1 14:36 novacain; vg1 14:36 steroids; vg1 - PMHx: 14:36 Aneurysm; Diabetes - NIDDM; Hypertension; Myocardial infarction; vg1 - Immunization history:: Adult Immunizations up to date. - Family history:: not pertinent. - Social history:: Smoking status: Patient/guardian denies using tobacco. - Hospitalizations: : Patient was recently seen at [facility]. ROS: 09:59 Constitutional: Negative for fever, chills, and weight loss, Eyes: Negative for injury, rn pain, redness, and discharge, Neck: Negative for injury, pain, and swelling, Cardiovascular: Negative for palpitations, positive for chest and edema Respiratory: Negative for wheezing Abdomen/GI: Negative for abdominal pain, nausea, vomiting, diarrhea, and constipation, Back: Negative for injury and pain, : Negative for injury, bleeding, discharge, and swelling, MS/Extremity: Negative for injury and deformity, Skin: Negative for injury, rash, and discoloration, Neuro: Negative for headache, weakness, numbness, tingling, and seizure. 09:59 All other systems are negative. Exam: 09:59 Constitutional: This is a well developed, well nourished patient who is awake, alert, rn mild tachypnea Head/Face: Normocephalic, atraumatic. Eyes: Periorbital areas with no swelling, redness, or edema. ENT: No stridor Cardiovascular: Regular rate and rhythm. No pulse deficits. Respiratory: Mild, no retractions, speaking full sentences Abdomen/GI: Soft, non-tender Skin: Warm, dry MS/ Extremity: Pulses equal, no cyanosis. 1+ bilateral lower extremities Neuro: Awake and alert, GCS 15, oriented to person, place, time, and situation. Vital Signs: 10:03 BP 124 / 67; Pulse 100; Resp 22; Temp 98.8; Pulse Ox 98% on 4 lpm NC; da3 14:27 BP 136 / 96; Pulse 100; Resp 20; Pulse Ox 96% on 4 lpm NC; vg1 15:41 BP 117 / 76; Pulse 98; Resp 20; Pulse Ox 97% on 4 lpm NC; vg1 MDM: 09:58 Patient medically screened. rn 15:17 Differential diagnosis: pneumonia, Pneumothorax pulmonary edema, Malignant pleural rn effusion. Data reviewed: vital signs, nurses notes, lab test result(s), EKG, radiologic studies, plain films. 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 Interpretation: acceptable. Test interpretation: by ED physician or midlevel provider: plain radiologic studies, Bilateral pleural effusions on chest x-ray. Counseling: I had a detailed discussion with the patient and/or guardian regarding: the historical points, exam findings, and any diagnostic results supporting the discharge/admit diagnosis, lab results, radiology results, the need for outpatient follow up, to return to the emergency department if symptoms worsen or persist or if there are any questions or concerns that arise at home. Response to treatment: the patient's symptoms have mildly improved after treatment, and as a result, I will discharge patient. Refusal of service: The patient/guardian displays adequate decision making capability and despite a detailed discussion of alternatives, benefits, risks, and consequences refuses: Lasix. Special discussion: I discussed with the patient/guardian in detail that at this point there is no indication for admission to the hospital. It is understood, however, that if the symptoms persist or worsen the patient needs to return immediately for re-evaluation. Based on the history and exam findings, there is no indication for further emergent testing or inpatient evaluation. I discussed with the patient/guardian the need to see the regional sales executive/oncologist for further evaluation of the symptoms. ED course: Patient with bilateral malignant effusions, not as bad as last week when required drainage. Oxygen 97 to 98% on the 4 L she was discharged on. I do not think that there was a great change. Patient refuses Lasix medication she states it makes her swell more and that is why she has not been taking it at home. No indication for emergent admission or transfer. Had long discussion with patient and the future needs for drainage. Has follow-up appointment at [facility] next week. Return precautions given and understood.. 02/10 09:58 Order name: BMP; Complete Time: 14:17 02/10 09:58 Order name: Blood Culture Adult (2) rn 02/10 09:58 Order name: CBC with Diff rn 02/10 09:58 Order name: NT PRO-BNP; Complete Time: 14:17 rn 02/10 09:58 Order name: PT-INR; Complete Time: 14:27 rn 02/10 09:58 Order name: Ptt, Activated; Complete Time: 14:27 rn 02/10 09:58 Order name: Troponin (emerg Dept Use Only); Complete Time: 14:17 rn 02/10 09:58 Order name: XRAY Chest Pa And Lat (2 Views); Complete Time: 11:32 rn 02/10 09:58 Order name: Cardiac monitoring; Complete Time: 14:38 rn 02/10 09:58 Order name: EKG - Nurse/Tech; Complete Time: 13:02 02/10 09:58 Order name: IV Saline Lock; Complete Time: 13:48 02/10 09:58 Order name: Labs collected and sent; Complete Time: 13:48 rn 02/10 09:58 Order name: O2 Per Protocol; Complete Time: 13:02 rn 02/10 09:58 Order name: O2 Sat Monitoring; Complete Time: 13:02 rn Administered Medications: 14:13 Drug: Zofran (Ondansetron) 4 mg Route: IVP; Site: right antecubital; ld1 15:41 Follow up: Response: No adverse reaction; Marked relief of symptoms vg1 15:41 Follow up: Response: No adverse reaction; Marked relief of symptoms vg1 14:14 Drug: morphine 2 mg Route: IVP; Site: right antecubital; ld1 20:49 Follow up: Response: No adverse reaction; Marked relief of symptoms vg1 14:59 Not Given (Patient Refused; Provider notifiedd): Lasix (furosemide) 60 mg IVP once; vg1 give over 2 minutes Disposition Summary: 02/10/21 15:22 Discharge Ordered Location: Home rn Problem: new rn Symptoms: have improved rn Condition: Stable rn Diagnosis - Malignant pleural effusion rn Followup: rn - With: Private Physician - When: As needed - Reason: Recheck today's complaints, Re-evaluation by your physician Discharge Instructions: - Discharge Summary Sheet rn - Pleural Effusion rn - Pleurisy rn Forms: - Medication Reconciliation Form rn - Thank You Letter rn - Antibiotic furnace loader - Prescription Opioid Use rn Signatures: Dispatcher [employer] Van Wilson MD MD rn Garcia, Victoria RN RN vg1 Maya Panda RN RN ld1
--- NOTE | 2021-02-10 15:23 | ER ---
Nurse's Notes [facility] Name: Mery Larson Age: 60 yrs Sex: Female : 1960 Arrival Date: 02/10/2021 Time: 09:33 Bed 23 Private MD: Diagnosis: Malignant pleural effusion Presentation: 02/10 10:01 Chief complaint: Patient states: Short of breath more so lying down. Coronavirus da3 screen: Client denies travel out of the [place] in the last 14 days. At this time, the client does not indicate any symptoms associated with coronavirus-19. Ebola Screen: No symptoms or risks identified at this time. Risk Assessment: Do you want to hurt yourself or someone else? Patient reports no desire to harm self or others. 10:01 Method Of Arrival: Ambulatory da3 10:01 Acuity: SHIV 3 da3 Triage Assessment: 10:04 General: Appears comfortable. da3 Historical: - Allergies: 14:36 Lidocaine; vg1 14:36 novacain; vg1 14:36 steroids; vg1 - PMHx: 14:36 Aneurysm; Diabetes - NIDDM; Hypertension; Myocardial infarction; vg1 - Immunization history:: Adult Immunizations up to date. - Family history:: not pertinent. - Social history:: Smoking status: Patient/guardian denies using tobacco. - Hospitalizations: : Patient was recently seen at [facility]. Screenin:28 Abuse screen: Denies threats or abuse. Nutritional screening: No deficits noted. vg1 Tuberculosis screening: No symptoms or risk factors identified. Fall Risk No fall in past 12 months (0 pts). No secondary diagnosis (0 pts). IV access (20 points). Ambulatory Aid- Crutches/Cane/Walker (15 pts). Gait- Normal/Bed Rest/Wheelchair (0 pts) Mental Status- Oriented to own ability (0 pts). Total Lopez Fall Scale indicates Low Risk Score (25-44 pts). Fall prevention measures have been instituted. Side Rails Up X 2 Placed close to Nursing Station. Assessment: 14:25 General: Appears in no apparent distress. comfortable, Behavior is calm, cooperative. vg1 Pain: Complains of pain in anterior aspect of left upper chest Pain currently is 8 out of 10 on a pain scale. Neuro: Level of Consciousness is awake, alert, obeys commands, Oriented to person, place, time, situation. Cardiovascular: Rhythm is sinus rhythm. Respiratory: Reports cough that is productive, pain with cough Airway is patent Respiratory effort is even, unlabored, Breath sounds are diminished bilaterally. GI: Reports nausea, Patient currently denies vomiting. : No signs and/or symptoms were reported regarding the genitourinary system. EENT: No signs and/or symptoms were reported regarding the EENT system. Derm: Skin Skin is pink, warm \T\ dry. Musculoskeletal: Circulation, motion, and sensation intact. 15:40 Reassessment: Patient appears in no apparent distress at this time. No changes from vg1 previously documented assessment. Patient and/or family updated on plan of care and expected duration. Pain level reassessed. Patient is alert, oriented x 3, equal unlabored respirations, skin warm/dry/pink. Vital Signs: 10:03 BP 124 / 67; Pulse 100; Resp 22; Temp 98.8; Pulse Ox 98% on 4 lpm NC; da3 14:27 BP 136 / 96; Pulse 100; Resp 20; Pulse Ox 96% on 4 lpm NC; vg1 15:41 BP 117 / 76; Pulse 98; Resp 20; Pulse Ox 97% on 4 lpm NC; vg1 ED Course: 09:33 Patient arrived in ED. ds1 09:57 Van Franco MD is Attending Physician. rn 10:03 Triage completed. da3 10:25 XRAY Chest Pa And Lat (2 Views) In Process Unspecified. EDMS 13:02 EKG done, by coating technician. reviewed by Van Franco MD. dh3 13:25 First set of blood cultures drawn by ok. Inserted saline lock: 20 gauge in left 3 antecubital area, using aseptic technique. Blood collected. 13:28 Initial lab(s) drawn, by ok, sent to lab. Second set of blood cultures drawn by ok. dh3 14:17 Chantell Larson, RN is Primary Nurse. vg1 14:35 Arm band placed on. vg1 14:36 Patient has correct armband on for positive identification. Bed in low position. Call vg1 light in reach. Side rails up X2. 15:40 No provider procedures requiring assistance completed. IV discontinued, intact, vg1 bleeding controlled, No redness/swelling at site. Pressure dressing applied. Administered Medications: 14:13 Drug: Zofran (Ondansetron) 4 mg Route: IVP; Site: right antecubital; ld1 15:41 Follow up: Response: No adverse reaction; Marked relief of symptoms vg1 15:41 Follow up: Response: No adverse reaction; Marked relief of symptoms vg1 14:14 Drug: morphine 2 mg Route: IVP; Site: right antecubital; ld1 20:49 Follow up: Response: No adverse reaction; Marked relief of symptoms vg1 14:59 Not Given (Patient Refused; Provider notifiedd): Lasix (furosemide) 60 mg IVP once; vg1 give over 2 minutes Outcome: 15:22 Discharge ordered by . rn 15:40 Discharged to home via wheelchair. vg1 15:40 Condition: stable 15:40 Discharge instructions given to patient, Instructed on discharge instructions, follow up and referral plans. Demonstrated understanding of instructions, follow-up care. 15:42 Patient left the ED. vg1 Signatures: Dispatcher [employer] [facility] Marisol Austin ds1 Van Franco MD MD rn Herrera, Deanna 3 Chantell Larson RN RN vg1 Maya Panda RN RN ld1 Jan Mejía, RN RN da3
[2021-02-10 15:53] VITALS: TEMP 98.8
[2021-02-10 15:57] VITALS: BP 117/76; O2SAT 97
[2021-02-10 20:08] LABS: Blood Morphology Comment NOT SEEN (NOT SEEN); Platelet Estimate INCR; White Blood Cell Scan OK (OK)
== END 2021-02-10 15:42 | disposition home or self-care (01) ==
LOC: ER 09:29
DX: D09.9 Carcinoma in situ, unspecified (principal); J91.0 Malignant pleural effusion; I10 Essential (primary) hypertension; Z88.4 Allergy status to anesthetic agent; Z88.5 Allergy status to narcotic agent; Z88.8 Allergy status to other drugs, medicaments and biological substances
CPT/HCPCS: 87040 ×2; 85025; 80048; 36415; 85610; 85730; 84484; 83880; 71046; 96375; 96374; 99284; J2270; J2405